=== PATIENT | female | born 1945 | race Caucasian/White ===

== ENCOUNTER 2017-12-10 05:30 | Day surgery (SDC) | payer OTHER ==
[~2017-12-10 05:30] MED LIST: ADVAIR 5001 DISK W/1; CALCIUM1 TAB; ENALAPRIL MALEA10 MG PO; NASONEX17 GM; SYNTHROID50 MCG; VASOTEC2.5 MG
== END 2017-12-10 12:05 | disposition home or self-care (01) ==
LOC: CIR.AMB 05:30 → EDBD 05:30 → CIR.AMB 12:05
DX: M47.816 Spondylosis without myelopathy or radiculopathy, lumbar region (principal); M47.817 Spondylosis without myelopathy or radiculopathy, lumbosacral region; M51.37 Other intervertebral disc degeneration, lumbosacral region

== ENCOUNTER 2018-04-05 23:55 | Emergency (ER) | payer OTHER ==
[~2018-04-05] VITALS: Ht 152.4 cm; Wt 63.5 kg
[2018-04-06] MEDS ORDERED: SINGULAIR 10MG10 MG (00:06)
[2018-04-06] MEDS ORDERED: BAYER PM CAPLE1 EACH (00:07)
[2018-04-06] MEDS ORDERED: NAMENDA10 MG (00:08)
[2018-04-06] MEDS ORDERED: D3-5050000 UNIT (00:08)
[2018-04-06] MEDS ORDERED: B-121000 MC1 PO (00:09)
[2018-04-06] MEDS ORDERED: FOLIC ACID1 MG (00:09)
[2018-04-06] MEDS ORDERED: CIPRO500 MG PO (08:14)
[2018-04-06] MEDS ORDERED: LEVSIN/SL0.125 MG SL (08:14)
== END 2018-04-06 09:11 | disposition home or self-care (01) ==
LOC: ER 23:55
DX: R10.32 Left lower quadrant pain (principal); N39.0 Urinary tract infection, site not specified

== ENCOUNTER → 2018-04-08 | Emergency (ER) | payer OTHER ==
[~2018-04-08] VITALS: Ht 152.4 cm; Wt 63.5 kg
[~2018-04-08] MED LIST changes: +B-121000 MC1 PO; +BAYER PM CAPLE1 EACH; +CIPRO500 MG PO; +D3-5050000 UNIT; +FOLIC ACID1 MG; +LEVSIN/SL0.125 MG SL; +NAMENDA10 MG; +SINGULAIR 10MG10 MG
== END | disposition home or self-care (01) ==
LOC: ER 21:09
DX: R06.02 Shortness of breath (principal); R14.3 Flatulence; F41.1 Generalized anxiety disorder

== ENCOUNTER 2019-01-04 08:16 | Outpatient (CLI) | payer OTHER | END 2019-01-04 08:22 | disposition home or self-care (01) | LOC: TOM 08:16 | DX: K56.600 Partial intestinal obstruction, unspecified as to cause (principal) ==

== ENCOUNTER → 2021-07-20 | Emergency (ER) | payer OTHER ==
[~2021-07-20] VITALS: Ht 152.4 cm; Wt 59.9 kg
[~2021-07-20] MED LIST changes: +BENZONATATE100 MG PO; +MEDROLPACK PO; +MUCINEX DM ER1 EAC1 PO; +SYMBICORT 16010.2 GM IH
== END | disposition home or self-care (01) ==
LOC: ER 11:32
DX: U07.1 COVID-19 (principal); J45.998 Other asthma; J06.9 Acute upper respiratory infection, unspecified

== ENCOUNTER 2022-08-26 07:13 | Emergency (ER) | payer OTHER ==
[~2022-08-26] VITALS: Ht 152.4 cm; Wt 59.0 kg
[2022-08-26] MEDS ORDERED: LEVSIN/SL0.125 MG PO (15:04)
[2022-08-26] MEDS ORDERED: PEPCID AC20 MG PO (15:04)
[2022-08-26] MEDS ORDERED: INTESTINEX680 M1 PO (15:04)
== END 2022-08-26 15:27 ==
LOC: ER 07:13
DX: K30 Functional dyspepsia (principal); R10.32 Left lower quadrant pain; K57.30 Diverticulosis of large intestine without perforation or abscess without bleeding

== ENCOUNTER 2023-08-26 06:57 | Emergency (ER) | payer OTHER ==
[~2023-08-26] VITALS: Ht 152.4 cm; Wt 58.5 kg
[~2023-08-26 06:57] MED LIST changes: +INTESTINEX680 M1 PO; +LEVSIN/SL0.125 MG PO; +PEPCID AC20 MG PO
[2023-08-26] MEDS ORDERED: KETOROLAC TROMETHAMINE 30 MG VIAL IM ONE (11:00)
== END 2023-08-26 11:33 | disposition home or self-care (01) ==
LOC: ER 06:57
DX: M54.50 Low back pain, unspecified (principal); I10 Essential (primary) hypertension
CPT/HCPCS: 72100; 96372; 99282; J1885

== ENCOUNTER 2024-05-01 09:25 | Emergency (ER) | payer OTHER ==
[~2024-05-01] VITALS: Ht 152.4 cm; Wt 56.7 kg
[2024-05-01] MEDS ORDERED: VAZALORE81 MG PO (10:36)
[2024-05-01] MEDS ORDERED: ACETAMINOPHEN 500 MG GEL..CAP PO ONE (12:30)
[2024-05-01 13:01] LABS: HEMATOCRIT 37.6 % (36.0-45.00); HEMOGLOBIN 12.7 g/dL (12.0-15.00); MEAN CELL VOLUME 88.2 fL (80.00-100.00); MEAN CORPUSCULAR HEMOGLOBIN 29.8 pg (27.00-32.0); MEAN CORPUSCULAR HGB CONC 33.8 g/dl (32.0-36.0); PLATELET COUNT 134 K/uL (150-450); RED BLOOD COUNT 4.26 M/uL (4.00-6.00)
[2024-05-01 13:28] LABS: CALCIUM 9.7 mg/dL (8.5-10.1); CREATININE SERUM 0.89 mg/dL (0.55-1.02); GFR 61.18; POTASSIUM 4.63 mEq/L (3.5-5.1)
== END 2024-05-01 14:44 | disposition home or self-care (01) ==
LOC: ER 09:27
PROVIDERS: General Practice
DX: R53.81 Other malaise (principal); R42 Dizziness and giddiness; R07.9 Chest pain, unspecified; I10 Essential (primary) hypertension; E03.8 Other specified hypothyroidism; E11.9 Type 2 diabetes mellitus without complications; Z91.018 Allergy to other foods